=== PATIENT | female | born 2000 | race American Indian/Alaskan Native ===

== ENCOUNTER 2020-12-29 08:40 | Emergency (ER) | payer MEDICAID ==
[2020-12-29] MEDS ORDERED: LIDOCAINE (1%) 10 MG/1 ML VIAL 20 ML MDV INFILTRATI ONE (10:03)
--- NOTE | 2020-12-29 10:03 | Emergency Department Report ---
Abscess Boil HPI - HPI Chief Complaint: Skin/Abscess/Foreign Body Stated Complaint: BOIL Time Seen by Provider: 12/29/20 09:51 Duration: 1 Week Location: Head (right cheek) Severity: Moderate History: No Fever, No Pain, No Purulent Drainage, No Numbness, No Foreign Body, No Previous History, No Insect Bite HPI: This is a 20-year-old -[place] female who presents to the emergency room with an abscess to her right side of chin for 1 week. Patient denies prior history. Reports pain as 8 out of 10 on pain scale worse with touch. Reports pain as a constant aching pain. She denies drainage, fever, or dental pain. Home Medications: Previous Rx's Medication Instructions Recorded Last Taken Type Fluconazole [Diflucan TAB] 100 mg PO ONCE #1 tablet 12/29/20 Unknown Rx Naproxen [Naprosyn] 500 mg PO BID PRN #20 tablet 12/29/20 Unknown Rx Sulfamethoxazole/Trimethoprim 1 each PO BID #20 tablet 12/29/20 Unknown Rx [Bactrim DS TAB] Allergies/Adverse Reactions: Allergies Allergy/AdvReac Type Severity Reaction Status Date / Time No Known Allergies Allergy Unverified 12/29/20 09:08 ED Review of Systems ROS: Stated complaint: BOIL Other details as noted in HPI Constitutional: denies: chills, fever Respiratory: denies: cough, shortness of breath, wheezing Cardiovascular: denies: chest pain, palpitations Skin: lesions (Right side of chin) Neurological: denies: headache, weakness, paresthesias Psychiatric: denies: anxiety, depression ED Past Medical Hx - Past Medical History Previous Medical History?: No - Surgical History Past Surgical History?: No - Medications Home Medications: Home Medications Medication Instructions Recorded Confirmed Last Taken Type Fluconazole [Diflucan TAB] 100 mg PO ONCE #1 tablet 12/29/20 Unknown Rx Naproxen [Naprosyn] 500 mg PO BID PRN #20 tablet 12/29/20 Unknown Rx Sulfamethoxazole/Trimethoprim 1 each PO BID #20 tablet 12/29/20 Unknown Rx [Bactrim DS TAB] ED Abscess Boil Physical Exam - Exam General: Vital signs noted. No distress. Alert and acting appropriately. Front/Back of Body, Lg (Color): 1 - 1 cm fluctuant nodule to right mandible, TTP, erythematous, no drainage Size: 1 cm Exam: Yes Tenderness, Yes Fluctuance, Yes Normal Neurologic Exam, Yes Normal Circulation, No Surrounding Cellulites/Erythema, No Lymphangitis, No Crepitation, No Heart Murmur I & D Note - I & D Note I & D Note: The area was prepared and draped in the usual, sterile manner. The site was anesthetized with 1% lidocaine without epinephrine. A linear incision along the local skin lines was made and the purulent material expressed. The abcess was explored thoroughly and sequestered pockets were opened. Bleeding was minimal. Packing: idodoform. Followup: The patient tolerated the procedure well without complications. Standard post-procedure care was explained and return precautions are given. Critical care attestation.: If time is entered above; I have spent that time in minutes in the direct care of this critically ill patient, excluding procedure time. ED Medical Decision Making - Medical Decision Making This is a 20 y.o. female that presents with a painful abscess to right mandible. No history of prior abscess. Patient is stable and examined by me. Physical assessment of 1 cm fluctuance nodule to right mandible. No acute signs of distress noted. Given analgesics in ER. I&D refer to note. Discussed plan to start bactrim DS and ibuprofen with patient. Educated patient on follow up plan to have packing removed and wound reassessed in 2-3 days. Patient agrees to ED plan of care. Discharged home and follow up with PCP in 2-3 days. ED Disposition Clinical Impression: Cutaneous abscess of face Disposition: 01 HOME / SELF CARE / HOMELESS Is pt being admited?: No Condition: Stable Instructions: Skin Abscess, [id number] Additional Instructions: Keep packing in place for 2-3 days. Remove packing from wound in 2 to 3 days. Complete full round of bactrim DS antibiotic as prescribed. Follow up with PCP in 2-3 days. Return to ER if foul smelling discharge, swelling, or severe pain to wound. Prescriptions: Sulfamethoxazole/Trimethoprim [Bactrim DS TAB] 1 each PO BID #20 tablet Fluconazole [Diflucan TAB] 100 mg PO ONCE #1 tablet Naproxen [Naprosyn] 500 mg PO BID PRN #20 tablet PRN Reason: Pain , Severe (7-10) Referrals: [facility] [Outside] - 3-5 Days [facility] [Provider Group] - 3-5 Days NIDHI MARTINEZ MD [Staff Physician] - 3-5 Days Forms: Work/School Release Form(ED) Time of Disposition: 11:20
[2020-12-29] MEDS ORDERED: IBUPROFEN 800 MG TAB PO ONE (10:04)
[2020-12-29 11:56] VITALS: BP 121/83
== END 2020-12-29 11:57 | disposition home or self-care (01) ==
LOC: ED 08:40
DX: L02.01 Cutaneous abscess of face (principal)
CPT/HCPCS: 99282

== ENCOUNTER 2021-08-16 08:06 | Emergency (ER) | payer MEDICAID ==
[2021-08-16] MEDS ORDERED: dexAMETHasone 4 MG/ML VIAL IM ONE (10:36)
[2021-08-16] MEDS ORDERED: KETOROLAC 10 MG TAB PO ONE (10:37)
--- NOTE | 2021-08-16 10:58 | Emergency Department Report ---
ED ENT HPI - General Chief complaint: Sore Throat Stated complaint: SORE THROAT Time Seen by Provider: 08/16/21 10:23 Source: patient Mode of arrival: Ambulatory Limitations: No Limitations - History of Present Illness Initial comments: 21-year-old black female with past medical history of hypertension presents to the emergency department for evaluation of 3-week history of throat pain worse on the right side and now right ear pain. She denies fever, headache, abdominal pain, but states that she has had some cough, congestion, and a runny nose. She states that this initially started did take some [id number] cough medication without improvement but she has not taken anything for symptoms in over a week. MD complaint: sore throat, ear pain -: Gradual, week(s) (To) Location: R ear, throat Severity: moderate Severity scale (0 -10): 6 Quality: aching Consistency: intermittent Associated Symptoms: cough, pain with swallowing, sore throat, rhinorrhea. denies: fever, gum swelling, toothache, tinnitus, hearing loss, discharge from ear - Related Data Previous Rx's Medication Instructions Recorded Last Taken Type methylPREDNISolone [Medrol 4MG 4 mg PO DAILY #1 pack 08/16/21 Unknown Rx DOSEPAK (21 tabs)] Allergies Allergy/AdvReac Type Severity Reaction Status Date / Time No Known Allergies Allergy Verified 08/16/21 10:30 ED Dental HPI - General Chief complaint: Sore Throat Stated complaint: SORE THROAT Time Seen by Provider: 08/16/21 10:23 Source: patient Mode of arrival: Ambulatory Limitations: No Limitations - Related Data Previous Rx's Medication Instructions Recorded Last Taken Type methylPREDNISolone [Medrol 4MG 4 mg PO DAILY #1 pack 08/16/21 Unknown Rx DOSEPAK (21 tabs)] Allergies Allergy/AdvReac Type Severity Reaction Status Date / Time No Known Allergies Allergy Verified 08/16/21 10:30 ED Review of Systems ROS: Stated complaint: SORE THROAT Other details as noted in HPI Comment: All other systems reviewed and negative Constitutional: denies: chills, fever ENT: throat pain. denies: congestion Respiratory: cough. denies: shortness of breath, SOB with exertion, SOB at rest, stridor, wheezing Cardiovascular: denies: dyspnea on exertion Gastrointestinal: denies: abdominal pain, nausea, vomiting, diarrhea, hematemesis, melena, hematochezia Genitourinary: denies: urgency, dysuria, frequency, hematuria, discharge, abnorm al menses Musculoskeletal: denies: back pain Neurological: headache ED Past Medical Hx - Past Medical History Hx Hypertension: Yes - Social History Smoking Status: Never Smoker Substance Use Type: None - Medications Home Medications: Home Medications Medication Instructions Recorded Confirmed Last Taken Type methylPREDNISolone [Medrol 4MG 4 mg PO DAILY #1 pack 08/16/21 Unknown Rx DOSEPAK (21 tabs)] ED Physical Exam - General Limitations: No Limitations General appearance: alert, in no apparent distress - Head Head exam: Present: atraumatic, normocephalic - Eye Eye exam: Present: normal appearance. Absent: conjunctival injection - ENT ENT exam: Present: normal orophraynx (Erythema to posterior oropharynx), TM's normal bilaterally. Absent: normal exam (Bilateral nasal mucosal edema) - Expanded ENT Exam Expanded Mouth exam: Present: normal external inspection, tongue normal Teeth exam: Present: normal inspection Throat exam: Positive: tonsillar erythema, tonsillomegaly. Negative: tonsillar exudate, R peritonsillar mass, L peritonsillar mass - Neck Neck exam: Present: normal inspection. Absent: tenderness, lymphadenopathy - Respiratory Respiratory exam: Present: normal lung sounds bilaterally. Absent: respiratory distress, wheezes, rales, rhonchi, stridor, chest wall tenderness - Cardiovascular Cardiovascular Exam: Present: bradycardia, normal heart sounds - GI/Abdominal GI/Abdominal exam: Present: soft, normal bowel sounds. Absent: distended, tenderness, guarding, rebound, rigid - Extremities Exam Extremities exam: Present: normal inspection, normal capillary refill - Back Exam Back exam: Present: normal inspection. Absent: CVA tenderness (R), CVA tenderness (L) - Neurological Exam Neurological exam: Present: alert, oriented X3 - Psychiatric Psychiatric exam: Present: normal affect, normal mood - Skin Skin exam: Present: warm, dry, intact, normal color ED Course Vital Signs 08/16/21 08:27 Temperature 98.4 F Pulse Rate 58 L Respiratory 18 Rate Blood Pressure 127/87 O2 Sat by Pulse 99 Oximetry ED Medical Decision Making - Medical Decision Making 21-year-old black female with past medical history of hypertension presents to the emergency department for evaluation of 3-week history of throat pain worse on the right side and now right ear pain. She denies fever, headache, abdominal pain, but states that she has had some cough, congestion, and a runny nose. She states that this initially started did take some [id number] cough medication without improvement but she has not taken anything for symptoms in over a week Patient noted to have a swollen tonsils without exudate on exam. Centor score of 1 (5 to 10% probability of strep pharyngitis). Patient will be treated for viral pharyngitis with steroid Dosepak. She is advised to take medications as prescribed, use Tylenol and ibuprofen as needed, and follow-up with primary care provider if no improvement or worsening symptoms. She verbalized understanding of and agreement with plan of care. Critical care attestation.: If time is entered above; I have spent that time in minutes in the direct care of this critically ill patient, excluding procedure time. ED Disposition Clinical Impression: Pharyngitis Qualifiers: Pharyngitis/tonsillitis etiology: unspecified etiology Qualified Code(s): J02.9 - Acute pharyngitis, unspecified Disposition: 01 HOME / SELF CARE / HOMELESS Is pt being admited?: No Does the pt Need Aspirin: No Condition: Stable Instructions: Viral Respiratory Infection, [id number], Sore Throat, Ea sy-to-Read Additional Instructions: Take medications as prescribed. Follow-up with primary care provider if no improvement or worsening symptoms. Return to the emergency department as needed. Prescriptions: methylPREDNISolone [Medrol 4MG DOSEPAK (21 tabs)] 4 mg PO DAILY #1 pack Referrals: NIDHI MARTINEZ MD [Staff Physician] - 3-5 Days Forms: Work/School Release Form(ED) Time of Disposition: 10:57
[2021-08-16 11:24] VITALS: BP 118/80
== END 2021-08-16 11:24 | disposition home or self-care (01) ==
LOC: ED 08:06
DX: J02.9 Acute pharyngitis, unspecified (principal); I10 Essential (primary) hypertension
CPT/HCPCS: 96372; 99282; J1100